=== PATIENT | female | born 1985 | race Caucasian/White ===

== ENCOUNTER 2020-09-22 20:15 | Emergency (ER) | payer MEDICARE, MEDICAID ==
[~2020-09-22] VITALS: Ht 167.6 cm; Wt 100.0 kg
[2020-09-22] MEDS ORDERED: KETOROLAC 15MG/ML VIAL IV ONE (22:15)
[2020-09-22] MEDS ORDERED: SODIUM CHLORIDE 0.9% 1,000 ML IV ONE (22:15)
[2020-09-22 22:38] LABS: BASOPHILS % 0.3 % (0.0-2.0); EOSINOPHILS % 1.1 % (0.0-5.0); HEMOGLOBIN. 11.9 g/dL (12.0-16.0); LYMPHOCYTES % 12.3 % (20.0-50.0); MEAN CORPUSCULAR HEMOGLOBIN 25.5 pg (28.0-32.0); MEAN CORPUSCULAR VOLUME 79.2 fL (81.0-99.0); MEAN PLATELET VOLUME 9.4 fl (7.4-10.4); MONOCYTES % 4.8 % (2.0-8.0); NEUTROPHILS % 81.5 % (40.0-76.0); PLATELET 179 x1000/uL (130-400); RED BLOOD CELL COUNT 4.68 mill/uL (4.2-5.4); RED CELL DISTRIBUTION WIDTH 13.4 % (11.6-14.6)
[2020-09-22 22:43] LABS: CHLORIDE 101 mEq/L (98-107)
[2020-09-23] MEDS ORDERED: INSULIN REGULAR (HUMULIN R) UD 100 UNITS/ML SYR SUBCUT ONE
[2020-09-23] MEDS ORDERED: INSULIN REGULAR (HUMULIN R) 300UNITS/3ML VIAL SUBCUT ONE (00:15)
[2020-09-23] MEDS ORDERED: HYDROCODONE/ACETAMINOPHEN 5/325MG TABLET PO ONE (00:45)
[2020-09-23 04:07] VITALS: BP 123/80
== END 2020-09-23 04:36 | disposition short-term general hospital (02) ==
LOC: ER 20:15 → CANBEDREQ 09-23 06:38
DX: M54.2 Cervicalgia (principal); E11.65 Type 2 diabetes mellitus with hyperglycemia; I10 Essential (primary) hypertension; Y08.89XA Assault by other specified means, initial encounter; Y93.89 Activity, other specified; Y92.89 Other specified places as the place of occurrence of the external cause; Y99.8 Other external cause status; Z88.6 Allergy status to analgesic agent
CPT/HCPCS: 36415; 70450; 71045; 71250; 72125; 72141; 80053; 81025; 82962; 85025; 96372; 96374; 99285; J1815; J1885; J7030

== ENCOUNTER → 2021-02-18 | Outpatient (CLI) | payer MEDICARE, MEDICAID | END | disposition home or self-care (01) | LOC: RAD 14:01 | PROVIDERS: ATTEND Internal Medicine Nephrology | DX: R00.0 Tachycardia, unspecified (principal); R06.02 Shortness of breath; R07.9 Chest pain, unspecified | CPT/HCPCS: 71045; 93005 ==

== ENCOUNTER 2021-10-03 18:54 | Emergency (ER) | payer MEDICARE, MEDICAID ==
[~2021-10-03] VITALS: Ht 157.5 cm; Wt 89.0 kg
[2021-10-03 19:03] VITALS: BP 136/98
[2021-10-03] MEDS ORDERED: NA P230E RC (20:28)
[2021-10-03] MEDS ORDERED: SENN-257 MT (20:28)
== END 2021-10-03 20:46 | disposition home or self-care (01) ==
LOC: ER 19:01
DX: K59.00 Constipation, unspecified (principal); E11.9 Type 2 diabetes mellitus without complications; I10 Essential (primary) hypertension; Z87.19 Personal history of other diseases of the digestive system
CPT/HCPCS: 81025; 99282